=== PATIENT | female | born 1995 | race Caucasian/White ===

== ENCOUNTER 2019-11-22 07:12 | Emergency (ER) | payer OTHER, SELFPAY ==
--- NOTE | ~2019-11-22 | XR_ITS ---
EXAMINATION: XR chest 2V EXAM DATE: 11/22/2019 07:45 INDICATION: Cough, fever nausea and vomiting. Body aches. TECHNIQUE: Frontal and lateral projections of the chest obtained and reviewed. There is no prior viola dy for comparison. FINDINGS: The lungs are clear. There are no pleural effusions. The cardiomediastinal silhouette is within normal limits. There is no pneumothorax suspected. The bones and soft tissues are unremarkab le. IMPRESSION: Normal chest x-ray exam. Reviewed, dictated and finalized at location B. IMPRESSION: Normal chest x-ray exam.
[2019-11-22 07:26] VITALS: BP 121/75; PULSE 79; RESP 17; TEMP 36.8; O2SAT 99
--- NOTE | 2019-11-22 07:42 | ED.GENADULT ---
HPI - General Adult General Chief complaint: Nausea/Vomiting/Diarrhea Stated complaint: n/v, cough, fever, congestion Time Seen by Provider: 11/22/19 07:22 Source: patient Mode of arrival: ambulatory Limitations: no limitations History of Present Illness HPI narrative: 24 yo female who presents with c/o fever, nasal congestion, nausea and vomiting. Patient states 1 week ago she develop cough, nasal congestion. Two days ago she developed fever, chills, nausea and vomiting. She states she went to work this morning and she was sent home when she started vomiting. She states she had fever 100 F yesterday afternoon. She has not taken tylenol since yesterday afternoon. She states she has not traveled out of the country and she has not been exposed to anyone. Related Data Allergies Allergy/AdvReac Type Severity Reaction Status Date / Time No Known Allergies Allergy Verified 11/22/19 07:29 Review of Systems Review of Systems: All systems reviewed & are unremarkable except as noted in HPI and below Constitutional: Constitutional: Reports chills and Reports fever(s) ENT: Denies dysphagia, Denies dizziness, Reports nasal congestion and Reports sore throat Cardiovascular: Cardiovascular: Denies chest pain and Denies radiating jaw, neck or arm pain Respiratory: Respiratory: Reports chest congestion and Reports cough Gastrointestinal: Gastrointestinal: Reports abdominal pain, Denies diarrhea, Reports nausea and Reports vomiting Genitourinary: Genitourinary: Denies dysuria Neurologic: Denies headache(s), Denies focal weakness and Denies numbness PMFSH Surgical History Surgical History (Updated 11/22/19 @ 07:48 by Shawna Lowry MD) S/P foot surgery, right Social History Social History (Updated 11/22/19 @ 07:49 by Shawna Lowry MD) Smoking status: Never smoker Exam Narrative: Exam Narrative: GENERAL: Well-appearing, well-nourished, and in no acute distress. HEAD: Normocephalic, atraumatic EYES: PERRLA and EOMI, conjunctiva clear without discharge EARS: TM's clear bilaterally without erythema or dullness NOSE: Nares clear, no rhinorrhea or epistaxis THROAT:Mucous membranes moist, Oropharynx normal without erythema, exudate, peritonsillar swelling or fluctuance NECK: Supple, without lymphadenopathy or mass RESPIRATORY: No respiratory distress, Airway patent, Respirations non-labored, Clear to auscultation without rales, rhonchi or wheeze HEART: Regular rate and rhythm. No murmur heard. Normal peripheral pulses. ABDOMEN: Soft, nontender, nondistended, normal active bowel sounds. No masses. No rebound or guarding, No organomegaly. EXTREMITIES: No edema, normal strength with full range of motion. SKIN: Warm, dry, normal color without rash NEURO: Alert and oriented x3. CN 2-12 grossly intact. No focal deficits. PSYCH: Normal mood and affect. Course Reevaluation(s) Reevaluation #1: Patient states she feels better. She was able to drink a ll of soda Date: 11/22/19 Time: 09:58 Vital Signs Vital signs: Vital Signs Temperature 98.2 F 11/22/19 07:26 Pulse Rate 79 11/22/19 07:26 Respiratory Rate 17 11/22/19 07:26 Blood Pressure 121/75 11/22/19 07:26 Pulse Oximetry 99 11/22/19 07:26 Temperature 97.9 F 11/22/19 09:24 Pulse Rate 55 L 11/22/19 09:24 Respiratory Rate 17 11/22/19 07:26 Blood Pressure 129/81 11/22/19 09:24 Pulse Oximetry 100 11/22/19 09:24 Medical Decision Making Vital Signs Vital Signs: Vital Signs Temperature 98.2 F 11/22/19 07:26 Pulse Rate 79 11/22/19 07:26 Respiratory Rate 17 11/22/19 07:26 Blood Pressure 121/75 11/22/19 07:26 Pulse Oximetry 99 11/22/19 07:26 Temperature 97.9 F 11/22/19 09:24 Pulse Rate 55 L 11/22/19 09:24 Respiratory Rate 17 11/22/19 07:26 Blood Pressure 129/81 11/22/19 09:24 Pulse Oximetry 100 11/22/19 09:24 Lab Data Labs: UCG Bedside Result Negative Ref
[2019-11-22] MEDS: LACTATED RINGERS 1,000 ML 999 ML IV CONT (07:46)
[2019-11-22] MEDS: ONDANSETRON INJ 4 MG/2 ML VIAL IV PUSH ×2 (07:47→09:21)
[2019-11-22 09:24] VITALS: BP 129/81; PULSE 55; TEMP 36.6; O2SAT 100
== END 2019-11-22 10:08 | disposition home or self-care (01) ==
PROVIDERS: Emergency Provider General Practice
DX: B34.9 Viral infection, unspecified (principal)
CPT/HCPCS: 71046; 81025; 87081; 87804; 87880; 96361; 96374; 96376; 99284; J2405; J7120

== ENCOUNTER 2019-11-24 11:58 | Emergency (ER) | payer OTHER, SELFPAY ==
[2019-11-24 12:05] VITALS: BP 129/72; PULSE 86; RESP 20; TEMP 36.8; O2SAT 100
--- NOTE | 2019-11-24 12:58 | ED.URI ---
HPI - URI/Sore Throat General Chief Complaint: Upper Respiratory Infection <Alma Sin PA-C - Last Filed: 11/24/19 20:38> Stated Complaint: flu symptoms <RUDY Licona Last Filed: 11/24/19 20:38> Time Seen by Provider: 11/24/19 12:16 <Alma Sin PA-C - Last Filed: 11/24/19 20:38> Source: patient <RUDY Licona Last Filed: 11/24/19 20:38> Mode of arrival: ambulatory <RUDY Licona Last Filed: 11/24/19 20:38> Limitations: no limitations <RUDY Licona Last Filed: 11/24/19 20:38> History of Present Illness HPI Narrative: Patient presents with upper respiratory symptoms for approximately 10 days. Patient states that she was seen in this ER 3 days ago where she tested negative for flu, strep and had a negative chest x-ray. Patient states that she has not had any fevers the last few days and her rhinorrhea has improved however she still has a persistent dry cough. Patient states the cough causes her to have body aches. Patient states she is unable to rest, which is why patient has returned to emergency department. Patient denies wheezing or shortness of breath. Patient denies chest pain, nausea, vomiting, diarrhea. Patient has not traveled internationally or gone any cruises recently. Patient denies known exposure to someone with coronavirus. <RUDY Licona Last Filed: 11/24/19 20:38> Related Data Allergies/Adverse Reactions: Allergies Allergy/AdvReac Type Severity Reaction Status Date / Time No Known Allergies Allergy Verified 11/26/19 18:38 <Alma Sin PA-C - Last Filed: 11/24/19 20:38> Review of Systems Review of Systems: Narrative: CONSTITUTIONAL: Denies fever, chills, or sweats. EYES: Denies visual changes, redness, or discharge. ENT: Reports congestion and sore throat denies rhinorrhea or otalgia. CARDIOVASCULAR: Denies chest pain, palpitations, or edema. RESPIRATORY: Reports cough denies dyspnea. GASTROINTESTINAL: Denies abdominal pain, nausea, vomiting, or diarrhea. GENITOURINARY: Denies dysuria or hematuria. SKIN: Denies rash or itching. MUSCULOSKELETAL: Denies back pain, joint pain, or myalgia. NEUROLOGIC: Denies headache, numbness, dizziness, or weakness. PSYCHIATRIC: Denies anxiety or depression. <Alma Sin PA-C - Last Filed: 11/24/19 20:38> [facility] Surgical History Surgical History: Surgical History (Updated 11/26/19 @ 18:54 by Karen Chase) S/P foot surgery, right <Alma Sin PA-C - Last Filed: 11/24/19 20:38> Social History Social History: Social History Smoking status: Never smoker Gender identity (if verbalized by the patient): Female <Alma Sin PA-C - Last Filed: 11/24/19 20:38> Exam Narrative: Exam Narrative: GENERAL: Well-appearing, well-nourished, and in no acute distress. Nontoxic in appearance. HEAD: Normocephalic, atraumatic. EYES: PERRLA and EOMI. ENT: Nares clear, no rhinorrhea or epistaxis. Mucous membranes moist. Oropharynx without tonsillar hypertrophy exudate or other lesions. Bilateral TMs pearly disla nonbulging NECK: Supple. No adenopathy or masses. No carotid bruits or JVD CHEST: Clear to auscultation. No respiratory distress. No wheezes rales or rhonchi. Dry cough noted. HEART: Regular rate and rhythm. EXTREMITIES: Normal range of motion. No edema. SKIN: Warm, dry, no rash. NEURO: No focal deficits. Alert and oriented x3. PSYCH: Normal mood and affect. <Alma Sin PA-C - Last Filed: 11/24/19 20:38> Course Vital Signs Vital signs: Vital Signs Temperature 98.3 F 11/24/19 12:05 Pulse Rate 86 11/24/19 12:05 Respiratory Rate 20 11/24/19 12:05 Blood Pressure 129/72 11/24/19 12:05 Pulse Oximetry 100 11/24/19 12:05 Temperature 98.3 F 11/24/19 12:05 Pulse Rate 86 11/24/19 12:05 Respiratory Rate 20 11/24/19 12:05 Blood Pressure 129/72
== END 2019-11-24 13:35 | disposition home or self-care (01) ==
PROVIDERS: Emergency Provider General Practice
DX: B34.9 Viral infection, unspecified (principal)
CPT/HCPCS: 87804; 99283

== ENCOUNTER 2019-11-26 18:06 | Emergency (ER) | payer OTHER, SELFPAY ==
--- NOTE | ~2019-11-26 | XR_ITS ---
EXAMINATION: XR chest 1V portable INDICATION: Cough, nausea and vomiting TECHNIQUE: Portable AP chest at 1848 hours COMPARISON: 11/22/2019 FINDINGS: The lungs are free of acute opacities. There is no pleural effusion or pneumothorax. The ca rdiomediastinal silhouette is normal. The visualized bones and soft tissues are unremarkable. IMPRESSION: 1. No acute cardiopulmonary abnormality. Reviewed, dictated and finalized at location A.
[2019-11-26 18:32] VITALS: BP 109/53; PULSE 58; RESP 18; TEMP 36.9; O2SAT 97
--- NOTE | 2019-11-26 18:34 | ED.URI ---
HPI - URI/Sore Throat General Chief Complaint: Upper Respiratory Infection Stated Complaint: FLU S/SX Time Seen by Provider: 11/26/19 18:25 Source: patient Mode of arrival: ambulatory Limitations: no limitations History of Present Illness HPI Narrative: A 24 female presents to the ED with c/o flu sx. Pt states that 1.5 weeks ago she started to have body aches, HANEY that radiates to her neck, fever, N/V/D, rhinorrhea, sneezing, and cough. She notes that she was seen at [place] [facility] 4 days ago for the same symptoms. Pt adds that she works at [employer], but denies any contact with anyone who has travelled out of the country. She states that her son started to develop a cough yesterday. MD elicited complaint: other (Flu sx) Onset (ago): week(s) (1.5) Consistency: constant Associated symptoms: fever, headache (Radiates to neck), cough, nausea, vomiting, diarrhea and other (Body aches, rhinorrhea, sneezing) Related Data Allergies Allergy/AdvReac Type Severity Reaction Status Date / Time No Known Allergies Allergy Verified 11/26/19 18:38 Review of Systems Review of Systems: All systems reviewed & are unremarkable except as noted in HPI and below Constitutional: Constitutional: Reports body ache(s) and Reports fever(s) ENT: Reports nasal discharge and Reports other (Sneezing) Respiratory: Respiratory: Reports cough Gastrointestinal: Gastrointestinal: Reports diarrhea, Reports nausea and Reports vomiting Neurologic: Reports headache(s) (Radiates to neck) PMFSH Past Medical History Medical History Asthma Depression 2 Para 0 Herpes Surgical History Surgical History (Updated 11/26/19 @ 18:54 by Karen Chase) S/P foot surgery, right Social History Social History Smoking status: Never smoker Gender identity (if verbalized by the patient): Female Exam Narrative: Exam Narrative: General appearance: Well-developed, well-nourished, no family member at the bedside Skin: Normal color Head: Normocephalic, nontraumatic Eyes: Clear conjunctiva ENT: Erythematous oropharynx, ears normal, nose normal Neck: Supple, nontender Chest and respiratory: Airway patent, no respiratory distress, no accessory muscle use Heart: Regular rate/rhythm Abdomen: Soft, nontender, no organomegaly, quiet bowel sounds Vascular: Normal peripheral pulses, normal capillary refill. Musculoskeletal: Normal range of motion, nontender back Neurologic: Alert and oriented ?3, [employer] is normal as tested, no gross motor deficit Course Course Emergency Course: Improving Vital Signs Vital signs: Vital Signs Temperature 36.9 C 11/26/19 18:32 Pulse Rate 58 L 11/26/19 18:32 Respiratory Rate 18 11/26/19 18:32 Blood Pressure 109/53 L 11/26/19 18:32 Pulse Oximetry 97 11/26/19 18:32 Temperature 36.9 C 11/26/19 18:32 Pulse Rate 58 L 11/26/19 18:32 Respiratory Rate 18 11/26/19 18:32 Blood Pressure 109/53 L 11/26/19 18:32 Pulse Oximetry 99 11/26/19 18:36 MDM - URI/Sore Throat MDM Narrative Medical decision making narrative: My concern is the differential diagnosis below. Strep throat, influenza swab, chest x-ray, ibuprofen 600 mg, Tylenol 650 mg orally ordered. Further plan to follow Differential Diagnosis Differential diagnosis: Likely upper respiratory infection, viral infection, bronchitis, influenza and pharyngitis Lab Data Labs: Influenza A Screen Negative Reference Range: Negative Influenza B Screen Negative Reference Range: Negative Strep Screen Presumptive Negative *(Reference
[2019-11-26 18:36] VITALS: O2SAT 99
[2019-11-26] MEDS: ACETAMINOPHEN 325 MG TABLET 650 MG PO (19:00)
[2019-11-26] MEDS: IBUPROFEN 600 MG TABLET PO (19:00)
--- NOTE | 2019-11-26 19:08 | PC.NURSE ---
REPORT GIVEN TO TERESA ADLER AT THIS TIME, SHE HAS ASSUMED PT CARE.
[2019-11-26 19:34] VITALS: BP 116/64; PULSE 64; RESP 18; TEMP 36.8; O2SAT 97
== END 2019-11-26 19:36 | disposition home or self-care (01) ==
PROVIDERS: Emergency Provider Emergency Medicine
DX: B34.9 Viral infection, unspecified (principal); J45.909 Unspecified asthma, uncomplicated
CPT/HCPCS: 71045; 87081; 87804; 87880; 99283; A9270

== ENCOUNTER 2019-11-30 12:06 | Emergency (ER) | payer OTHER, SELFPAY ==
--- NOTE | ~2019-11-30 | XR_ITS ---
EXAMINATION: XR chest 2V 11/30/2019 12:55 INDICATION: Shortness of breath with cough. Nausea and vomiting. PROCEDURE: 2 view chest COMPARISON: 11/26/2019 FINDINGS: The lungs are clear. The cardiomediastinal silhouette is within normal limits. There are no pleural effusions. There is no pneumothorax suspected. IMPRESSION: 1: NO ACUTE CARDIOPULMONARY DISEASE. Reviewed, dictated and finalized at location A.
[2019-11-30 12:23] VITALS: BP 119/59; PULSE 69; RESP 20; TEMP 36.9; O2SAT 98
--- NOTE | 2019-11-30 12:29 | ED.URI ---
HPI - URI/Sore Throat General Chief Complaint: Upper Respiratory Infection Stated Complaint: cough, fatigue, N/V Time Seen by Provider: 11/30/19 12:19 Source: patient Mode of arrival: ambulatory Limitations: no limitations History of Present Illness HPI Narrative: A 24 y/o female pt presents to the ED, with c/o upper respiratory Sx x 1.5 weeks that are worsening. Pt states that she has been here several times over the past few days and her Sx are not improving. She reports N/V, inability to keep food/liquids down, congestion, cough, HANEY, myalgias, and SOB, but denies diarrhea, fever or CP. She denies any significant PMHx and has NKA. Pt notes that she works at [employer]. MD elicited complaint: cough Onset (ago): week(s) (1.5) Consistency: progressively worsening Able to tolerate fluids by mouth: No Context: other (works at [employer]) Associated symptoms: myalgias, headache, cough, shortness of breath, nausea, vomiting and other (congestion, unable to keep liquid/food down) Related Data Allergies Allergy/AdvReac Type Severity Reaction Status Date / Time No Known Allergies Allergy Verified 11/26/19 18:38 Review of Systems Review of Systems: All systems reviewed & are unremarkable except as noted in HPI and below Constitutional: Constitutional: Reports body ache(s), Denies fever(s) and Reports headache(s) Cardiovascular: Cardiovascular: Denies chest pain Respiratory: Respiratory: Reports cough, Reports dyspnea and Reports other (congestion) Gastrointestinal: Gastrointestinal: Denies diarrhea, Reports nausea, Reports vomiting and Reports other (inability to tolerate food/liquids) PMFSH Past Medical History Medical History Asthma Depression 2 Para 0 Herpes Surgical History Surgical History S/P foot surgery, right Social History Social History (Updated 11/30/19 @ 14:58 by Chinedu NavarroWorkers On Call) Smoking status: Never smoker Occupation/Education: occupation Additional occupation/education comments: [employer] Gender identity (if verbalized by the patient): Female Exam Const: General: ill appearing (mildy) Nutritional Appearance: well nourished HENMT: Mouth: Yes lip normal and Yes moist mucous membranes Eyes: Conjunctivae: conjunctivae normal Pupils: Equal, round and reactive pupils present Resp: Effort & Inspection: normal respiratory effort Auscultation: clear to auscultation bilaterally Cardio: Rate: regular rate Rhythm: regular rhythm Heart sounds: no murmurs GI: GI Palp: Yes Soft to palpation and No Tenderness to palpation present (GI) Auscultation: normal bowel sounds Back/Spine/Pelvis: Other: Full ROM Skin: General skin exam: normal color, dry skin and other (warm) Neuro: General: patient oriented x3 (alert) Speech: normal speech Extrem: General: full ROM Psych: Mental Status: mental status grossly normal Affect: normal affect Course Vital Signs Vital signs: Vital Signs Temperature 36.9 C 11/30/19 12:23 Pulse Rate 69 11/30/19 12:23 Respiratory Rate 20 11/30/19 12:23 Blood Pressure 119/59 L 11/30/19 12:23 Pulse Oximetry 98 11/30/19 12:23 Temperature 36.7 C 11/30/19 15:19 Pulse Rate 80 11/30/19 15:19 Respiratory Rate 20 11/30/19 15:19 Blood Pressure 122/80 11/30/19 15:19 Pulse Oximetry 99 11/30/19 15:19 MDM - URI/Sore Throat MDM Narrative Medical decision making narrative: She looks well and labs are reassuring. Differential Diagnosis Differential diagnosis: Likely upper respiratory infection, viral infection, influenza and other (pneumonia, COVID-19) Medical Records Attestation: I reviewed the patient's medical records. Lab Data Attestation: I reviewed the patient's lab results. Result diagrams: 11/30/19 13:08 11/30/19 13:08 Labs: Lab Results 11/30/19 11/30/19 11/30/19 Range/Unit
[2019-11-30 13:16] LABS: Basophils Percent Auto 0.3 % (0.2-1.2); Eosinophils Absolute Auto 0.1 K/mm3 (0-0.3); Eosinophils Percent Auto 1.1 % (0-4.4); Hematocrit 48.6 % (37.0-47.0); Hemoglobin 15.5 g/dL (12.0-15.0); Immature Granulocyte Absolute 0.01 K/mm3 (0.00-0.031); Immature Granulocyte Percent A 0.2 % (0-0.5); Lymphocytes Absolute Auto 1.57 K/mm3 (0.9-3.2); Lymphocytes Percent Auto 25.7 % (18.3-44.2); Mean Corpuscular HGB Conc 31.9 g/dl (32-36); Mean Corpuscular Hemoglobin 29.2 pg (26-34); Mean Corpuscular Volume 91.5 fl (80-100); Mean Platelet Volume 10.9 fl (7.4-10.4); Monocytes Absolute Auto 0.3 K/mm3 (0.1-0.6); Monocytes Percent Auto 4.6 % (2.6-8.5); Neutrophils Absolute Auto 4.2 K/mm3 (1.3-6.7); Neutrophils Percent Auto 68.1 % (45.5-73.1); Platelet Count Result 254 k/mm3 (150-375); Red Blood Count 5.31 M/mm3 (4.2-5.4); White Blood Count 6.1 K/mm3 (4.5-10.0)
[2019-11-30] MEDS: SODIUM CHLORIDE 0.9% IV 1,000 ML 999 ML IV CONT (13:18)
[2019-11-30] MEDS: ONDANSETRON INJ 4 MG/2 ML VIAL IV PUSH (13:18)
[2019-11-30 13:24] LABS: Add Urine Microscopic? YES; Appearance Urine Clear (Clear); Bacteria Urine Trace /hpf; Bilirubin Urine Negative (Negative); Blood Urine Negative (Negative); Color Urine Yellow (Yellow); Glucose Urine UA Negative (Negative); Ketones Urine Negative (Negative); Leukocyte Esterase Ur Negative LEU/UL (Negative); Mucus Urine Rare /lpf; Nitrate Urine Negative (Negative); Protein Urine Negative (Negative); RBC Urine 0-2 /hpf (0-2); Specific Grav Ur 1.019 (1.001-1.035); Squamous Epithelial Cell Urine Rare /hpf (Few); WBC Urine 0-3 /hpf
[2019-11-30 13:25] LABS: Alanine Aminotransferase 8 U/L (4-35); Albumin Level 4.8 g/dL (3.5-5.1); Alkaline Phosphatase 71 U/L (38-126); Aspartate Amino Transferase 19 U/L (14-36); Bilirubin,Total 0.4 mg/dL (0.2-1.3); Blood Urea Nitrogen 10 mg/dL (7-17); Calcium 8.9 mg/dL (8.4-10.2); Carbon Dioxide 27 mmol/L (22-30); Chloride 104 mmol/L (98-107); Estimated CRCL calculation 97 ml/min; Estimated Glomerular Filt Rate > 60; Glucose 94 mg/dL (65-105); Lipase 37 U/L (23-300); Potassium 4.6 mmol/L (3.4-5.0); Sodium 139 mmol/L (137-145)
[2019-11-30 15:19] VITALS: BP 122/80; PULSE 80; RESP 20; TEMP 36.7; O2SAT 99
== END 2019-11-30 15:20 | disposition home or self-care (01) ==
PROVIDERS: Emergency Provider Emergency Medicine
DX: B34.9 Viral infection, unspecified (principal); J45.909 Unspecified asthma, uncomplicated
CPT/HCPCS: 36415; 71046; 80053; 81001; 83690; 85025; 96361; 96374; 99284; J2405; J7030

== ENCOUNTER 2020-07-22 15:43 | Emergency (ER) | payer OTHER, SELFPAY ==
[2020-07-22 16:33] VITALS: BP 140/70; PULSE 90; RESP 16; TEMP 36.8; O2SAT 100
[2020-07-22 16:46] LABS: Basophils Percent Auto 0.3 % (0.2-1.2); Eosinophils Absolute Auto 0.1 K/mm3 (0-0.3); Eosinophils Percent Auto 1.8 % (0-4.4); Hematocrit 42.8 % (37.0-47.0); Hemoglobin 14.2 g/dL (12.0-15.0); Immature Granulocyte Absolute 0.02 K/mm3 (0.00-0.031); Immature Granulocyte Percent A 0.3 % (0-0.5); Lymphocytes Absolute Auto 2.01 K/mm3 (0.9-3.2); Lymphocytes Percent Auto 30.4 % (18.3-44.2); Mean Corpuscular HGB Conc 33.2 g/dl (32-36); Mean Corpuscular Hemoglobin 30.5 pg (26-34); Mean Platelet Volume 10.1 fl (7.4-10.4); Monocytes Absolute Auto 0.5 K/mm3 (0.1-0.6); Monocytes Percent Auto 7.7 % (2.6-8.5); Neutrophils Absolute Auto 3.9 K/mm3 (1.3-6.7); Neutrophils Percent Auto 59.5 % (45.5-73.1); Platelet Count Result 204 k/mm3 (150-375); Red Blood Count 4.65 M/mm3 (4.2-5.4); Red Cell Distribution Width 12.2 % (11.5-14.5); White Blood Count 6.6 K/mm3 (4.5-10.0)
[2020-07-22 17:02] LABS: Add Urine Microscopic? NO; Appearance Urine Clear (Clear); Bilirubin Urine Negative (Negative); Blood Urine Negative (Negative); Color Urine Yellow (Yellow); Glucose Urine UA Negative (Negative); Ketones Urine Negative (Negative); Leukocyte Esterase Ur Negative LEU/UL (Negative); Nitrate Urine Negative (Negative); Protein Urine Negative (Negative); Specific Grav Ur 1.014 (1.001-1.035); Urobilinogen Urine Negative mg/dL (<2.0)
[2020-07-22 17:10] LABS: Alanine Aminotransferase 7 U/L (4-35); Alkaline Phosphatase 45 U/L (38-126); Anion Gap 4 mmol/L (8-16); Aspartate Amino Transferase 20 U/L (14-36); Bilirubin,Total 0.2 mg/dL (0.2-1.3); Blood Urea Nitrogen 12 mg/dL (7-17); Calcium 8.7 mg/dL (8.4-10.2); Carbon Dioxide 28 mmol/L (22-30); Chloride 106 mmol/L (98-107); Estimated CRCL calculation 96 ml/min; Estimated Glomerular Filt Rate > 60; Glucose 74 mg/dL (65-105); Lipase 54 U/L (23-300); Potassium 3.4 mmol/L (3.4-5.0); Sodium 138 mmol/L (137-145)
--- NOTE | 2020-07-22 17:45 | PC.NURSE ---
Pt to desk. PT states I am leaving. Pt walked out door with steady gait.
== END 2020-07-22 17:22 | disposition left against medical advice (07) ==
PROVIDERS: Emergency Provider Emergency Medicine
DX: R10.9 Unspecified abdominal pain (principal)
CPT/HCPCS: 36415; 80053; 81003; 81025; 83690; 85025; 99199